=== PATIENT | male | born 1960 | race Caucasian/White ===

== ENCOUNTER → 2018-01-10 14:35 | Outpatient (REF) | payer MEDICAID, SELFPAY ==
[2018-01-10 22:00] LABS: Anion Gap 8.8 mmol/L (3-11); BUN 11 mg/dL (7-18); CO2 27.2 mmol/L (21.0-32.0); CREATININE 0.71 mg/dL (0.70-1.30); Calcium 8.8 mg/dL (8.5-10.1); Chloride 100 mmol/L (98-107); Glucose 83 mg/dL (70-100); Potassium 4.4 mmol/L (3.5-5.1); Sodium 136 mmol/L (136-145)
== END ==
LOC: NCHCN 14:35
PROVIDERS: PCP Registered Nurse; Visit Provider Registered Nurse
DX: I10 Essential (primary) hypertension (principal)
CPT/HCPCS: 80048

== ENCOUNTER 2019-07-31 16:17 | Outpatient (REF) | payer MEDICAID, SELFPAY ==
[2019-07-31 22:34] LABS: Anion Gap 9.4 mmol/L (3-11); BUN 17 mg/dL (7-18); CO2 25.6 mmol/L (21.0-32.0); CREATININE 0.72 mg/dL (0.70-1.30); Calcium 8.4 mg/dL (8.5-10.1); Chloride 106 mmol/L (98-107); Glucose 87 mg/dL (74-106); Sodium 141 mmol/L (136-145)
== END 2019-07-31 16:37 ==
LOC: NCHCN 16:17
PROVIDERS: PCP Registered Nurse; Visit Provider Registered Nurse
DX: F10.99 Alcohol use, unspecified with unspecified alcohol-induced disorder (principal); I10 Essential (primary) hypertension
CPT/HCPCS: 80048

== ENCOUNTER 2020-01-30 20:54 | Outpatient (REF) | payer MEDICAID, SELFPAY ==
[2020-01-30 20:44] LABS: Calcium 8.8 mg/dL (8.5-10.1)
[2020-02-03 12:40] LABS: Parathyroid Hormone,Intact 52 pg/mL (19-88)
== END 2020-01-30 21:14 ==
LOC: NCHCN 20:54
PROVIDERS: PCP Registered Nurse; Visit Provider Registered Nurse
DX: M53.80 Other specified dorsopathies, site unspecified (principal); E83.51 Hypocalcemia
CPT/HCPCS: 82310; 83970

== ENCOUNTER 2020-07-29 14:24 | Outpatient (REF) | payer MEDICAID, SELFPAY ==
[2020-07-29 22:33] LABS: Anion Gap 10.3 mmol/L (3-11); BUN 18 mg/dL (7-18); CO2 26.7 mmol/L (21.0-32.0); CREATININE 0.7 mg/dL (0.70-1.30); Calcium 8.8 mg/dL (8.5-10.1); Calculated LDL 81 mg/dL (<100); Chloride 99 mmol/L (98-107); Cholesterol 147 mg/dL (<200); Glucose 92 mg/dL (74-106); HDL Cholesterol 42 mg/dL (40-60); Sodium 136 mmol/L (136-145); Triglyceride 122 mg/dL (<150)
== END 2020-07-29 14:25 | disposition home or self-care (01) ==
LOC: NCHCN 14:24
PROVIDERS: PCP Registered Nurse; Visit Provider Registered Nurse
DX: I10 Essential (primary) hypertension (principal); E78.70 Disorder of bile acid and cholesterol metabolism, unspecified; J44.9 Chronic obstructive pulmonary disease, unspecified
CPT/HCPCS: 80048; 80061

== ENCOUNTER 2020-11-18 19:42 | Outpatient (REF) | payer MEDICAID, SELFPAY ==
[2020-11-18 14:19] LABS: Anion Gap 9.4 mmol/L (3-11); BUN 13 mg/dL (7-18); CO2 27.6 mmol/L (21.0-32.0); CREATININE 1.1 mg/dL (0.70-1.30); Calcium 8.9 mg/dL (8.5-10.1); Chloride 104 mmol/L (98-107); Glucose 98 mg/dL (74-106); Potassium 3.7 mmol/L (3.5-5.1); Sodium 141 mmol/L (136-145)
== END 2020-11-18 19:43 | disposition home or self-care (01) ==
LOC: NCHCN 19:42
PROVIDERS: PCP Registered Nurse; Visit Provider Registered Nurse
DX: I10 Essential (primary) hypertension (principal)
CPT/HCPCS: 80048

== ENCOUNTER 2021-04-22 17:23 | Outpatient (REF) | payer MEDICAID, SELFPAY ==
[2021-04-22 22:51] LABS: Anion Gap 8.3 mmol/L (3-11); BUN 15 mg/dL (7-18); CO2 28.7 mmol/L (21.0-32.0); CREATININE 0.8 mg/dL (0.70-1.30); Chloride 102 mmol/L (98-107); Glucose 96 mg/dL (74-106); Potassium 3.8 mmol/L (3.5-5.1); Sodium 139 mmol/L (136-145)
== END 2021-04-22 17:24 | disposition home or self-care (01) ==
LOC: NCHCN 17:23
PROVIDERS: PCP Registered Nurse; Visit Provider Registered Nurse
DX: I10 Essential (primary) hypertension (principal)
CPT/HCPCS: 80048

== ENCOUNTER 2022-04-30 10:45 | Emergency (ER) | payer MEDICAID, SELFPAY ==
[2022-04-30] VITALS (7 sets, daily range): BP systolic 161–181; BP diastolic 92–102; PULSE 77–98; RESP 18–24; TEMP 36.7; O2SAT 95–97
--- NOTE | 2022-04-30 10:30 | RT.EKG_ITS ---
APPROVED REPORT Exam: Resting ECG Reason for Exam: ?syncope Patient Location: E HR:81 bpm ECG Measurements Heart Rate 81 AXIS AL 135 P 79 QRSd 88 QRS 77 QT 410 T 67 QTc 478 Conclusion Sinus rhythm...normal P axis, V-rate 60- 99
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
[2022-04-30 11:00] LABS: Abs Immature Grans 0.17 10^3/uL (0.0-0.06); Absolute Basophil Count 0.05 10^3/uL (0.0-0.2); Absolute Eosinophil Count 0.18 10^3/uL (0.0-0.7); Absolute Lymphocyte Count 2.79 10^3/uL (1.2-3.4); Absolute Monocyte Count 0.62 10^3/uL (0.1-0.8); Absolute Neutrophil Count 8.75 10^3/uL (1.2-6.7); Basophils % 0.4; Eosinophils % 1.4; HCT 43.3 % (40.0-50.0); HGB 14.5 g/dL (13.5-17.5); Immature Grans % 1.4; Lymphocytes % 22.2; MCHC 33.5 % (32.0-36.0); MCV 99 fL (80-95); Monocytes % 4.9; Neutrophils % 69.7; Platelet Count 308 10^3/uL (130-400); RBC 4.39 10^6/uL (4.36-5.78); RDW 12.4 % (11.8-14.1); RDW-SD 45.7 fL; WBC 12.56 10^3/uL (4.4-10.8)
[2022-04-30 11:21] LABS: ALT 27 U/L (16-63); AST 35 U/L (15-37); Alkaline Phosphatase 111 U/L (46-116); Anion Gap 9.8 mmol/L (3-11); BUN 8 mg/dL (7-18); Bilirubin, Total 0.3 mg/dL (0.2-1.0); CO2 29.2 mmol/L (21.0-32.0); CREATININE 0.8 mg/dL (0.70-1.30); Calcium 8.7 mg/dL (8.5-10.1); Chloride 103 mmol/L (98-107); ETHANOL BLOOD 81.6 mg/dL (<10); Estimated GFR 101.32 (mL/min/1.73m2); Glucose 145 mg/dL (74-106); Lipase 118 U/L (73-393); Potassium 3.7 mmol/L (3.5-5.1); Sodium 142 mmol/L (136-145); Total Protein 7.5 g/dL (6.4-8.2); Troponin I < 50 ng/L (<or=60)
[2022-04-30 11:23] LABS: PTT Activated 21.9 sec (21.0-27.5); Prothrombin Time 9.6 sec (9.3-11.0)
--- NOTE | 2022-04-30 11:25 | NUR.NOTE ---
Addendum entered by Peggy Alfred 04/30/22 12:14: Paula phone number [phone] Addendum entered by Peggy Alfred 04/30/22 11:28: 1128 per patient we have permission to give Paula information regarding patient. Original Note: Nursing Note: Paula Velazquez [phone]. Patient lives at her residence.
[2022-04-30] MEDS: Omnipaque 350 MG/ML 100 ML BTL IJ (11:28)
[2022-04-30] MEDS: Normal Saline Flush 10 ML SYR IVP (11:28)
[2022-04-30] MEDS: Normal Saline - Diluent 50 ML VIAL IJ (11:28)
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
[2022-04-30 11:42] LABS: Source Nasal/Nares
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
[2022-04-30] MEDS: fentaNYL 100 MCG/2 ML VIAL 50 MCG IVP (11:56)
[2022-04-30] MEDS: levETIRAcetam 1,000 MG in Normal Saline 100 ML 400 MG IVPB (12:15)
[2022-04-30] MEDS: Tranexamic Acid 1,000 MG/10 ML VIAL 1000 MG IVP (12:16)
[2022-04-30 12:17] LABS: COVID-19 PCR Negative (Negative)
--- NOTE | 2022-04-30 12:38 | NUR.NOTE ---
Addendum entered by Peggy Alfred 04/30/22 13:08: 2 patient belonging bags left behind. 1 with muck boots; 1 with maroon towel, tshirt cut, carthartt brown jacket. Called Paula and she or another friend will be in to [employer] the 2 bags. Addendum entered by Peggy Alfred 04/30/22 12:45: Patient mentioned that there were glasses and that EMS did bring them. However, More Nick RN; Sonja Hopkins RN and myself did not find any glasses. Addendum entered by Peggy Alfred 04/30/22 12:40: Tall muck boots black. Original Note: Nursing Note: Patient belongings in bags: jeans w/belt, white socks, maroon towel, tshirt cut, carthartt brown jacket. In patient belongings case: pocket knife, necklace, wrist watch and wallet.
[2022-04-30 12:49] LABS: Bilirubin Negative (Negative); Blood Small (Negative); Clarity Clear (Clear); Glucose Negative (Negative); Ketones Negative (Negative); Leukocyte Esterase Negative (Negative); Nitrite Negative (Negative); Specific Gravity 1.015 (1.005-1.025); Urobilinogen 0.2 EU/dL (Up TO 0.2)
[2022-04-30 12:57] LABS: *AMPHETAMINES SCREEN URINE Negative (Negative); *BARBITURATES SCREEN URINE Negative (Negative); *BENZODIAZEPINES SCREEN URINE Negative (Negative); Cannabinoids THC Negative (Negative); Cocaine Screen,Urine Negative (Negative); METHADONE URINE SCREEN Negative (Negative); OPIATES URINE SCREEN Negative (Negative)
[2022-04-30 12:59] LABS: Tricyclic Antidepressants Negative (Negative)
[2022-04-30 13:02] LABS: Bacteria Negative HPF (Negative); C & S Indicated? No; Casts Negative LPF (Negative); Crystals Negative HPF (Negative); Epithelial Cells Rare HPF (Negative); Mucus Negative (Negative); Other Cells Rare Renal (Negative); WBC Negative HPF (0-5)
== END 2022-04-30 12:51 ==
PROVIDERS: Emergency Provider Emergency Medicine; PCP Registered Nurse
DX: S39.81XA Other specified injuries of abdomen, initial encounter (principal); S63.501A Unspecified sprain of right wrist, initial encounter; S06.5X0A Traumatic subdural hemorrhage without loss of consciousness, initial encounter; S02.81XA Fracture of other specified skull and facial bones, right side, initial encounter for closed fracture; I10 Essential (primary) hypertension; E78.5 Hyperlipidemia, unspecified; Z20.822 Contact with and (suspected) exposure to COVID-19; V86.59XA Driver of other special all-terrain or other off-road motor vehicle injured in nontraffic accident, initial encounter; Y93.I9 Activity, other involving external motion
CPT/HCPCS: 36415; 74177; 80053; 80307; 83690; 86850; 86900; 86901; 87635; 93005; 96365; 96375; 99285; 70450; 70486; 71260; 72125; 73100; 80320; 81003; 81015; 83735; 84484; 85025; 85610; 85730; 93010; J1953; J3010; J3490

== ENCOUNTER 2022-05-06 13:00 | Outpatient (REF) | payer MEDICAID, SELFPAY ==
[2022-05-06 13:58] LABS: HCT 36.9 % (40.0-50.0); MCH 33.2 pg (27.0-33.0); MCHC 35.2 % (32.0-36.0); MCV 94 fL (80-95); MPV 8.4 fL (8.0-11.0); Platelet Count 378 10^3/uL (130-400); RBC 3.92 10^6/uL (4.36-5.78); RDW 12.3 % (11.8-14.1); RDW-SD 42.4 fL; WBC 9.92 10^3/uL (4.4-10.8)
[2022-05-06 14:07] LABS: Anion Gap 5.4 mmol/L (3-11); BUN 16 mg/dL (7-18); CO2 29.6 mmol/L (21.0-32.0); CREATININE 0.7 mg/dL (0.70-1.30); Calcium 8.9 mg/dL (8.5-10.1); Chloride 97 mmol/L (98-107); Estimated GFR 105.49 (mL/min/1.73m2); Glucose 109 mg/dL (74-106); Potassium 3.3 mmol/L (3.5-5.1); Sodium 132 mmol/L (136-145)
== END 2022-05-06 13:01 | disposition home or self-care (01) ==
LOC: NCHCN 13:00
PROVIDERS: PCP Registered Nurse; Visit Provider Registered Nurse
DX: I10 Essential (primary) hypertension (principal); I62.03 Nontraumatic chronic subdural hemorrhage
CPT/HCPCS: 80048; 85027

== ENCOUNTER 2022-05-13 10:25 | Outpatient (REF) | payer MEDICAID, SELFPAY ==
--- OUTSIDE RECORDS SUMMARY | 2022-05-13 10:32 | XMS_ITS | CCD ---
:1960 Author Care Team Providers Name Role Phone WING ARAGON Attending Physician Unavailable WING ARAGON Rounding (Secondary) Physician Unavailab le Vital Signs Unknown or Not Available. Allergies Allergy Code Allergy Type Reaction Status MILK 0 Food allergy GI PROBLEMS Active No Known Drug Allergies 0 No known drug allergies Active Procedures Unknown or Not Available. History of Immunizations Unknown or Not Available. Problems Unknown or Not Available. Results Unknown or Not Available. Active Medications Unknown or Not Available. Medications Administered During Visit Unknown or Not Available. Encounters Unknown or Not Available. Social History Smoking Status Code Start Date End Date Current every day smoker [id number] 05/22/1971 Patient Decision Aids Unknown or Not Available. Discharge Instructions You were admitted to [facility] You were discharged from [facility] Should you have any questions prior to d ischarge, please contact a member of your healthcare team. If you have left the [facility] and have any questions, please contact your primary care physician. Chief Complaint and Reason For Visit Unknown or Not Available. Function Status Unknown or Not Available. Plan of Care Unknown or Not Available. Referral/Transition of Care Unknown or Not Available.
[2022-05-13 19:34] LABS: Anion Gap 5.9 mmol/L (3-11); BUN 19 mg/dL (7-18); CO2 30.1 mmol/L (21.0-32.0); CREATININE 0.8 mg/dL (0.70-1.30); Calcium 8.8 mg/dL (8.5-10.1); Chloride 104 mmol/L (98-107); Estimated GFR 101.32 (mL/min/1.73m2); Glucose 90 mg/dL (74-106); Potassium 3.6 mmol/L (3.5-5.1); Sodium 140 mmol/L (136-145)
[2022-05-17 10:26] LABS: Hepatitis C Ab w Rflx HCV PCR Negative (Negative)
== END 2022-05-13 10:26 | disposition home or self-care (01) ==
LOC: NCHCN 10:25
PROVIDERS: PCP Registered Nurse; Visit Provider Registered Nurse
DX: I10 Essential (primary) hypertension (principal); Z11.59 Encounter for screening for other viral diseases
CPT/HCPCS: 80048; 86803

== ENCOUNTER 2022-08-19 15:11 | Outpatient (REF) | payer MEDICAID, SELFPAY ==
[2022-08-19 21:49] LABS: Anion Gap 7.6 mmol/L (3-11); BUN 11 mg/dL (7-18); CO2 29.4 mmol/L (21.0-32.0); CREATININE 0.9 mg/dL (0.70-1.30); Calcium 9.2 mg/dL (8.5-10.1); Chloride 104 mmol/L (98-107); Estimated GFR 97.17 (mL/min/1.73m2); Glucose 90 mg/dL (74-106); Potassium 4.3 mmol/L (3.5-5.1); Sodium 141 mmol/L (136-145)
== END 2022-08-19 15:12 | disposition home or self-care (01) ==
LOC: NCHCN 15:11
PROVIDERS: PCP Registered Nurse; Visit Provider Registered Nurse
DX: I10 Essential (primary) hypertension (principal)
CPT/HCPCS: 80048

== ENCOUNTER 2023-08-21 10:56 | Outpatient (REF) | payer MEDICAID, SELFPAY ==
[2023-08-21 14:54] LABS: Anion Gap 8.5 mmol/L (3-11); BUN 16 mg/dL (7-18); CO2 26.5 mmol/L (21.0-32.0); CREATININE 0.7 mg/dL (0.70-1.30); Calcium 8.8 mg/dL (8.5-10.1); Calculated LDL 67 mg/dL (<100); Chloride 106 mmol/L (98-107); Cholesterol 144 mg/dL (<200); Estimated GFR 104.18 (mL/min/1.73m2); Glucose 97 mg/dL (74-106); HDL Cholesterol 54 mg/dL (40-60); Potassium 3.6 mmol/L (3.5-5.1); Sodium 141 mmol/L (136-145); Triglyceride 118 mg/dL (<150)
== END 2023-08-21 10:57 | disposition home or self-care (01) ==
LOC: NCHCN 10:56
PROVIDERS: Family Medicine; PCP Registered Nurse; Visit Provider Nurse Practitioner Family
DX: E78.5 Hyperlipidemia, unspecified (principal); I10 Essential (primary) hypertension
CPT/HCPCS: 80048; 80061

== ENCOUNTER → 2023-10-30 05:08 | Outpatient (CLI) | payer MEDICAID, SELFPAY ==
--- NOTE | 2023-10-30 | DI.CTLCSR_ITS ---
Exam(s) CT CHEST LUNG CANCER SCREEN EXAM: CT CHEST LUNG CANCER SCREEN CLINICAL HISTORY: SCREENING FOR LUNG CANCER, F17.200, NICOTINE DEPENDENCE. TECHNIQUE: Imaging Protocol: Low Dose Technique CONTRAST MATERIAL: None COMPARISON: CT CT CHEST/ABD/PEL W from 04/30/2022 FINDINGS: CHEST: LUNGS: There is scarring in both lung apices. No associated rib destruction. There are no nodules i n the left lung. In the right lung there is a tiny 1-2 mm benign-appearing pleural base nodule in th e posterior basal segment of the right lower lobe. MEDIASTINUM: There is no obvious hilar nor mediastinal adenopathy. CARDIAC: Heart size is normal. There is no pericardial effusion.Caliber of the thoracic aorta is wit hin normal limits. OTHER: No obvious adrenal masses. No splenomegaly. OSSEOUS: No significant osseous lesions.No acute fractures. There is a healed fracture of the right 6, 7th, and 8th ribs. Also healed fracture of the right 10th rib. No acute rib fractures identified . IMPRESSION: 1. Tiny benign-appearing pleural base nodule in left lower lobe. No other significant focal findings in either lung field. 2. No pleural effusions nor intrathoracic adenopathy. 3. Lung RADS Cat 2 - Benign Appearance / Behavior: Nodules with a very low likelihood of becoming a c linically active cancer due to size or lack of growth Lung-RADS 1.0 CATEGORIES: Category 0 - Prior chest CT exam(s) being located for comparison. Category 1 - Annual screening in 12 months. No nodules or definitely benign nodules. Category 2 - Annual screening in 12 months. Benign appearance. Nodules with low likelihood of becomin g active cancer. Category 3 - 6-month follow-up. Probably benign. Short-term follow-up suggested. Nodules with low lik elihood of becoming active cancer. Category 4A - 3-month follow-up and CT/PET if >8 mm in size. Suspicious finding. Findings which requi re additional testing. Category 4B - Findings which require additional testing and tissue sampling. Category 4X - Category 3 or 4 nodules with additional features or imaging findings that increases the suspicion of malignancy. Modifier S- Potentially clinically significant findings (non lung cancer) RADIATION DOSE DELIVERED: 77.33mGy.cm Total DLP DATA REPOSITORY: All CT scans at this facility are submitted to the National Radiology Data Registry (NRDR) Dose Index Registry (DIR) with the [employer] (ACR). RADIATION OPTIMIZATION: All CT scans at this facility use at least one of these dose optimization te chniques: automated exposure control; mA and/or kV adjustment per patient size (includes targeted exa ms where dose is matched to clinical indication); or iterative reconstruction.
== END ==
PROVIDERS: PCP Family Medicine; Visit Provider Family Medicine
DX: Z12.2 Encounter for screening for malignant neoplasm of respiratory organs (principal); F17.210 Nicotine dependence, cigarettes, uncomplicated; R91.1 Solitary pulmonary nodule
CPT/HCPCS: 71271

== ENCOUNTER 2023-11-07 10:31 | Day surgery (SDC) | payer MEDICAID, SELFPAY ==
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
[2023-11-07 11:02] VITALS: BP 121/81; PULSE 80; RESP 16; TEMP 36.2; O2SAT 98
[2023-11-07] MEDS: Lactated Ringers 1,000 ML 80 ML IV (11:25)
[2023-11-07 11:29] VITALS: BMI 23.2
[2023-11-07 12:02] VITALS: BP 114/78; PULSE 77; RESP 16; TEMP 36.4; O2SAT 99
--- NOTE | 2023-11-07 12:13 | W.ANESPOSTOP ---
Postoperative Evaluation Date, Time and Location Date Performed: 11/07/23 Time Performed: 12:13 Patient Location: Day Surgery Unit Vital Signs Most Recent Imported Vital Signs: Most Recent Vital Signs Temp Pulse Resp BP Pulse Ox 36.4 C L 77 16 114/78 99 11/07/23 12:02 11/07/23 12:02 11/07/23 12:02 11/07/23 12:02 11/07/23 12:02 Pain Score Most Recent Pain Score: Most Recent Pain Score Pain Level 0 11/07/23 12:02 Assessment Mental Status: Awake (Alert & Oriented to Patient Baseline) Airway and Respiratory Function: Patent airway with normal (patient baseline) respiratory exam Cardiovascular Function: Hemodynamically Stable Hydration Status: Adequately Hydrated Nausea & Vomiting: No Nausea or Vomiting Pain: Pt. Denies Any Pain Peripheral Nerve Block: Patient did not receive a nerve block
--- NOTE | 2023-11-07 12:19 | W.COLOREPORT ---
Date of service: 11/07/23 Time of Service: 12:19 Colonoscopy Report Procedure Description: Procedures performed: 1. Colonoscopy Preoperative diagnosis: Surveillance colonoscopy, colon polyps Postoperative diagnosis: Moderate?severe sigmoid diverticulosis, grade 2 internal hemorrhoids Surgeon: Boubacar Ureña MD Indication for procedure: The patient is a 63-year-old man who last had a colonoscopy 5 years ago and multiple polyps were found. These were all tubular adenomas. No family history of colon cancer. He has no symptoms or complaints. Findings: Normal terminal ileum. There were no new polyps found anywhere. Prior tattoo sites were found in the sigmoid colon. No evidence of polyp regrowth at the sites. There are moderate to severe diverticular changes present in the sigmoid colon only. There is no fibrosis or stricture or active diverticulitis. Grade 2 internal hemorrhoids noted. Surveillance interval/follow-up: 7 years for next colonoscopy Specimens: No Estimated blood loss: Minimal Complications: None Quality of prep: Excellent Procedure in detail: The patient gave written consent and was in agreement with the indications, the potential risks as well as the benefits of the procedure. They were taken to the endoscopy suite and laid in the left lateral decubitus position. A timeout was performed and anesthesia was administered which was tolerated well. I started the procedure. Digital rectal and visual examination was performed and grossly within normal limits. A well-lubricated flexible colonoscope was then introduced and passed without any notable difficulty all the way to the cecum identified by the ileocecal valve and the appendiceal orifice. The terminal ileum was briefly intubated and looked normal visually. The scope was then slowly withdrawn with the above-noted findings. The patient tolerated the procedure well and was taken to the PACU in hemodynamically stable condition.
--- NOTE | 2023-11-07 12:21 | W.PM.DSUDISC ---
Date of service: 11/07/23 Time of Service: 12:21 Discharge Plan Disposition Patient Disposition: Home Condition: Good Discharge Details Attending Provider: Asa Ureña Primary Care Provider: Elizabeth Felix Home Meds and New Rx's Prescriptions: No Action bisacodyl [Dulcolax (bisacodyl)] 5 mg tablet,delayed release (DR/EC) 5 mg PO ONCE Qty: 4 0RF Rx Instructions: Take per colonoscopy instructions provided by ordering providers office polyethylene glycol 3350 17 gram/dose powder 17 g PO ONCE Qty: 238 0RF Rx Instructions: Take per colonoscopy instructions provided by ordering providers office albuterol sulfate 2.5 mg /3 mL (0.083 %) solution for nebulization 2.5 mg inhalation Q6H aspirin [Adult Aspirin Regimen] 81 mg tablet,delayed release (DR/EC) 81 mg PO DAILY Patient Comments: pt states he last took 11/04/23 amlodipine 10 mg tablet 10 mg PO DAILY simvastatin 20 mg tablet 20 mg PO DAILY lisinopril 10 mg tablet 10 mg PO DAILY albuterol sulfate 90 mcg/actuation HFA aerosol inhaler 2 puff inhalation Q6H PRN acetaminophen 500 mg capsule 1,000 mg PO TID PRN Rx Instructions: for headache olmesartan 20 mg tablet 20 mg PO DAILY acetylcysteine 600 mg capsule 600 mg PO DAILY Patient Comments: 2 capsules by mouth in the morning and 1 capsule in the evening maximum daily dose is 3 capsules. varenicline [Chantix Continuing Month Box] 1 mg tablet 1 mg PO BID Spiriva Respimat 2.5 mcg/actuation mist 2 puff inhalation DAILY fluoxetine 10 mg capsule 10 mg PO DAILY fluoxetine 20 mg capsule 20 mg PO DAILY Discharge Instructions Additional Instructions: FINDINGS: No new polyps were found. You can repeat another colonoscopy in 7 years. Activity:: Activity as Tolerated Diet:: As Tolerated
[2023-11-07 12:35] VITALS: BP 124/84; PULSE 74; RESP 18; TEMP 36.2; O2SAT 100
== END 2023-11-07 12:50 | disposition home or self-care (01) ==
PROVIDERS: PCP Family Medicine; Visit Provider Student in an Organized Health Care Education/Training Program
PROC: 0DJD8ZZ Inspection of Lower Intestinal Tract, Via Natural or Artificial Opening Endoscopic (ICD-10-PCS; CPT 45378; principal; 2023-11-07 11:15)
DX: Z12.11 Encounter for screening for malignant neoplasm of colon (principal); I10 Essential (primary) hypertension; J44.9 Chronic obstructive pulmonary disease, unspecified; F17.210 Nicotine dependence, cigarettes, uncomplicated; K57.30 Diverticulosis of large intestine without perforation or abscess without bleeding; K64.1 Second degree hemorrhoids
CPT/HCPCS: 45378; 00123; J2704

== ENCOUNTER 2024-07-12 12:03 | Outpatient (REF) | payer MEDICAID, SELFPAY ==
[2024-07-12 14:27] LABS: Anion Gap 6.1 mmol/L (3-11); BUN 16 mg/dL (7-18); CO2 29.9 mmol/L (21.0-32.0); CREATININE 0.8 mg/dL (0.70-1.30); Calcium 8.8 mg/dL (8.5-10.1); Chloride 106 mmol/L (98-107); Estimated GFR 100.06 (mL/min/1.73m2); Glucose 89 mg/dL (74-106); Potassium 3.7 mmol/L (3.5-5.1); Sodium 142 mmol/L (136-145)
[2024-07-12 19:20] LABS: HCT 43.3 % (40.0-50.0); MCH 32.2 pg (27.0-33.0); MCHC 34.6 % (32.0-36.0); MCV 93 fL (80-95); MPV 8.8 fL (8.0-11.0); Platelet Count 283 10^3/uL (130-400); RBC 4.66 10^6/uL (4.36-5.78); RDW 12.2 % (11.8-14.1); RDW-SD 42.1 fL; WBC 7.95 10^3/uL (4.4-10.8)
== END 2024-07-12 12:04 | disposition home or self-care (01) ==
LOC: NCHCN 12:03
PROVIDERS: PCP Family Medicine; Visit Provider Family Medicine
DX: J44.9 Chronic obstructive pulmonary disease, unspecified (principal); I10 Essential (primary) hypertension
CPT/HCPCS: 80048; 85027

== ENCOUNTER 2024-10-30 02:50 | Outpatient (CLI) | payer MEDICAID, SELFPAY ==
--- NOTE | 2024-10-30 | DI.CTLCSR_ITS ---
Exam(s) CT CHEST LUNG CANCER SCREEN EXAM: CT CHEST LUNG CANCER SCREEN CLINICAL HISTORY: F17.200 Nicotine dependence, unspecified, uncomplicated, Smoker TECHNIQUE: Imaging Protocol: Axial computed tomography images with coronal and sagittal reformatted images were created and reviewed. Lung Computer Aided Detection (CAD) was utilized. COMPARISON: CT CT CHEST LUNG CANCER SCREEN from 10/30/2023 FINDINGS: Tracheobronchial tree: Patent where visualized. No bronchiectasis. Pulmonary parenchyma: No consolidation or dominant measurable mass. Emphysematous changes are seen in the lungs. There is a calcified granuloma in the left lower lobe. Lung Nodules: There is a stable 2 mm pleural based nodule in the left lingula. There is a 2 mm nodul e in the lateral aspect of the right lower lobe. There are no new pulmonary nodules. Mediastinum and Sharda: No dominant adenopathy or fluid collection. The esophagus is unremarkable. Thyroid gland: Unremarkable. Lymph nodes: Unremarkable. Pleura: No effusion or pneumothorax. Heart: The heart is not dilated. Coronary artery calcifications are present. No pericardial effusion. Aorta: Thoracic aorta non-dilated.Atherosclerotic calcification is present. Upper abdomen: Unremarkable. Soft Tissues: Unremarkable. Bones: Within normal limits. There are old healed bilateral rib fractures. There is an old sternal fr acture deformity. IMPRESSION: Stable pulmonary nodules. Lung RADS Cat 2 - Benign Appearance / Behavior: Nodules with a very low likelihood of becoming a clin ically active cancer due to size or lack of growth Lung-RADS 1.0 CATEGORIES: Category 0 - Prior chest CT exam(s) being located for comparison. Category 1 - Annual screening in 12 months. No nodules or definitely benign nodules. Category 2 - Annual screening in 12 months. Benign appearance. Nodules with low likelihood of becomin g active cancer. Category 3 - 6-month follow-up. Probably benign. Short-term follow-up suggested. Nodules with low lik elihood of becoming active cancer. Category 4A - 3-month follow-up and CT/PET if >8 mm in size. Suspicious finding. Findings which requi re additional testing. Category 4B - Findings which require additional testing and tissue sampling. Suspicious finding. Category 4X - Category 3 or 4 nodules with additional features or imaging findings that increases the suspicion of malignancy. Modifier S- Potentially clinically significant finding. (Non lung cancer) RADIATION DOSE DELIVERED: 24.38mGy.cm Total DLP 24.38mGy.cmTotal DLP DATA REPOSITORY: All CT scans at this facility are submitted to the National Radiology Data Registry (NRDR) Dose Index Registry (DIR) with the [employer] (ACR). RADIATION OPTIMIZATION: All CT scans at this facility use at least one of these dose optimization te chniques: automated exposure control; mA and/or kV adjustment per patient size (includes targeted exa ms where dose is matched to clinical indication); or iterative reconstruction.
== END 2024-10-30 03:10 ==
LOC: DI 02:50
PROVIDERS: PCP Family Medicine; Visit Provider Family Medicine
DX: F17.210 Nicotine dependence, cigarettes, uncomplicated (principal); Z12.2 Encounter for screening for malignant neoplasm of respiratory organs; R91.1 Solitary pulmonary nodule
CPT/HCPCS: 71271